=== PATIENT | female | born 1980 | race Caucasian/White ===

== ENCOUNTER 2017-04-18 16:36 | Emergency (ER) | payer MEDICAID ==
[~2017-04-18] VITALS: Ht 160 cm; Wt 60.0 kg
[~2017-04-18 16:36] MED LIST: ACET325T33 PO; ACET500C5 PO; DIPH25CA6 PO; DOCU-144 PO; GLU5XL PO; IBUP-1542 PO; KENC1 TOP; METF500T4 PO; NITR-58 PO; PERM120L5 TP; TRAM50TA2 PO; ZOF8 PO
[2017-04-18 16:38] VITALS: Ht 160 cm; Wt 60.0 kg
[2017-04-18 17:18] LABS: URINE BLOOD (Dip) POC Negative (NEGATIVE)
[2017-04-18] MEDS ORDERED: ACETAMINOPHEN 500 MG TAB PO STA (17:19)
[2017-04-18] MEDS ORDERED: SOD CHLORIDE 0.9% 1,000 ML IV ONE (17:30)
[2017-04-18] MEDS ORDERED: METOCLOPRAMIDE 10 MG INJ IV ONE (17:30)
[2017-04-18 17:33] LABS: ADD SCAN DIFF NO
[2017-04-18 17:35] LABS: BASOPHILS % 0.3 % (0.0-2.0); EOSINOPHILS # 0.1 10^3/ul (0.0-0.5); EOSINOPHILS % 0.8 % (0.0-7.0); HEMATOCRIT 38.6 % (37.0-47.0); HEMOGLOBIN 13.3 g/dl (12.0-16.0); LYMPHOCYTES # 2.9 10^3/ul (0.8-2.9); LYMPHOCYTES % 27.3 % (15.0-51.0); MEAN CORPUSCULAR HEMOGLOBIN 30.5 pg (29.0-33.0); MEAN CORPUSCULAR HGB CONC 34.5 g/dl (32.0-37.0); MEAN CORPUSCULAR VOLUME 88.5 fl (82.0-101.0); MEAN PLATELET VOLUME 10.6 fl (7.4-10.4); MONOCYTES % 9.7 % (0.0-11.0); NEUTROPHIL # 6.5 10^3/ul (1.6-7.5); NEUTROPHILS % 61.6 % (39.0-77.0); PLATELET COUNT 376 10^3/UL (140-415); RED BLOOD COUNT 4.36 10^6/ul (4.20-5.40); RED CELL DISTRIBUTION WIDTH 11.8 % (11.5-14.5); WHITE BLOOD COUNT 10.5 10^3/ul (4.8-10.8)
[2017-04-18 17:55] LABS: ALBUMIN 4.3 g/dl (3.3-4.9); ALBUMIN/GLOBULIN RATIO 1.13; BILIRUBIN,INDIRECT 0.2 mg/dl (0-1.1); BILIRUBIN,TOTAL 0.2 mg/dl (0.2-1.3); CALCIUM 9.6 mg/dl (8.4-10.2); CREATININE 0.45 mg/dl (0.44-1.00); POTASSIUM 3.7 mmol/L (3.5-5.1); TOTAL PROTEIN 8.1 g/dl (6.1-8.1)
[2017-04-18] MEDS ORDERED: METO10TA92 PO (18:37)
[2017-04-18] MEDS ORDERED: ACET500C5 PO (18:37)
[2017-04-18] MEDS ORDERED: CEPH-443 PO (18:42)
--- NOTE | 2017-04-18 18:42 | ERD ---
ER Documentation Chief Complaint Date/Time DATE: 04/18/17 TIME: 18:38 Chief Complaint pt bib family with c/o headache for a few days, approx 12 wks preg HPI Patient is a 36-year-old female, , approximately 12 weeks , presents emergency department with a headache 3 days. Patient denies taking any medication. Patient states the pain is getting gradually worse. Patient denies sudden onset. Patient does have a history of headaches. Patient does report nausea and vomiting throughout her . Patient states she is vomited approximately 4 times today, watery in nature, nonbloody nonbilious. Patient denies any blurry vision, neck pain, neck stiffness, fevers, chills or loss consciousness. Patient's patient denies any chest pain or shortness of breath. Patient also complaining of dysuria and pelvic pain. Patient denies any vaginal discharge or vaginal bleeding. Last menstrual period on 02-13-17. Patient states she has been seeing her GRADUATE INTERN. ROS All systems reviewed and are negative except as per history of present illness. Medications Home Meds Active Scripts Cephalexin* (Keflex*) 500 Mg Capsule, 500 MG PO QID for 7 Days, CAP Prov:DARIN JOHNSON PA-C 04/18/17 Metoclopramide* (Reglan*) 10 Mg Tablet, 10 MG PO Q6 Y for NAUSEA AND/OR VOMITING , #10 TAB Prov:DARIN JOHNSON PA-C 04/18/17 Acetaminophen* (Tylophen*) 500 Mg Capsule, 1 CAP PO Q6H Y for PAIN AND OR ELEVATED TEMP, #20 CAP Prov:DARIN JOHNSON PA-C 04/18/17 Acetaminophen* (Tylophen*) 500 Mg Capsule, 1 CAP PO Q6H Y for PAIN AND OR ELEVATED TEMP, #16 CAP Prov:TERESITA LI MD 06/21/16 Ondansetron Hcl* (Zofran* ODT) 8 mg -ODT Tab.disper, 8 MG PO Q6 Y for NAUSEA AND /OR VOMITING, #10 TAB Prov:TERESITA LI MD 06/21/16 Docusate Sodium* (Colace*) 100 Mg Capsule, 100 MG PO TID, #30 CAP Prov:KYLE GARZA PA-C 02/28/16 Acetaminophen* (Tylenol*) 325 Mg Tablet, 2 TAB PO Q8 Y for PAIN AND OR ELEVATED TEMP, #20 TAB Prov:KYLE GARZA PA-C 02/28/16 Nitrofurantoin Monohyd Macrocr* (Macrobid*) 100 Mg Capsr, 100 MG PO BID for 7 Days, CAP Prov:KYLE GARZA PA-C 02/28/16 Ibuprofen* (Motrin*) 600 Mg Tab, 600 MG PO Q6H Y for PAIN AND OR ELEVATED TEMP, #30 Prov:RENEE HELLER PA-C 10/18/15 Ibuprofen* (Ibuprofen*) 600 Mg Tablet, 600 MG PO Q6 for 7 Days, TAB Prov:TERESITA LI MD 09/15/15 Tramadol HCl (Tramadol HCl) 50 Mg Tab, 50 MG PO Q4 Y for PAIN, #20 TAB Prov:TERESITA LI MD 09/15/15 Triamcinolone Acetonide* (Kenalog*) 0.1%-15GM Cr, 1 APPLIC TOP TID for 7 Days, EA Prov:TERESITA LI MD 06/12/15 Diphenhydramine Hcl (Benadryl) 25 Mg Cap, 25 MG PO q 6 hrs for 7 Days, CAP Prov:TERESITA LI MD 06/12/15 Permethrin (Permethrin) 118 Ml Liquid, 118 ML TP x oneat bed time for 1 Day, EA wash off after 8 hours Prov:TERESITA LI MD 06/12/15 Reported Medications Metformin* (Glucophage*) 500 Mg Tab, 500 MG PO BID, TAB 09/12/14 Glipizide XL* (Glipizide XL*) 5 Mg Tabsr, 5 MG PO BID, TAB 09/12/14 Allergies Allergies: Coded Allergies: No Known Drug Allergies (Verified Allergy, Unknown, 10/18/15) PMhx/Soc History of Surgery: Yes (Cholecystectomy) Anesthesia Reaction: No Hx Neurological Disorder: No Hx Respiratory Disorders: No Hx Cardiac Disorders: No Hx Psychiatric Problems: No Hx Miscellaneous Medical Probl: Yes (, 10 weeks ) Hx Alcohol Use: No Hx Substance Use: No Hx Tobacco Use: No Smoking Status: Never smoker FmHx Family History: No diabetes Physical Exam Vitals Vital Signs Date Time Temp Pulse Resp B/P Pulse Ox O2 Delivery O2 Flow Rate FiO2 04/18/17 19:21 98.3 91 16 114/76 100 Room Air 04/18/17 16:38 97.3 106 16 122/79 98 Physical Exam GENERAL: Well-developed, well-nourished female. Appears in no acute distress. Speaking in full sentences HEAD: Normocephalic, atraumatic. EYES: Pupils are equally reactive bilaterally. EOMs grossly intact. No conjunctival erythema. ENT: Moist mucous membranes. No uvula deviation. No kissing tonsils. NECK: Supple. No meningismus. Normal range of motion of the neck. LUNG: Clear to auscultation bilaterally. No rhonchi, wheezing, rales or coarse breath sounds. HEART: Regular rate and rhythm. No murmurs, rubs or gallops. ABDOMEN: Soft, nontender, and nondistended. Positive bowel sounds in all four quadrants. No rebound tenderness, no guarding. (-) McBurney's point tenderness. No CVA tenderness. BACK: No midline tenderness. EXTREMITIES: Equal pulses bilaterally. No peripheral clubbing, cyanosis or edema. No unilateral leg swelling. NEUROLOGIC: Alert and oriented x3, cooperative. Mood and affect appropriate to situation. Cranial nerves II through XII are grossly intact. Normal speech. Motor exam: 5/5 strength in upper and lower extremities. Sensory exam: Sensation intact to light touch on all four extremities.. Steady gait. No pronator drift. SKIN: Normal color. Warm and dry. No rashes or lesions. Result Diagram: 04/18/17 1726 04/18/17 1726 Results 24 hrs Laboratory Tests Test 04/18/17 17:20 04/18/17 17:26 Bedside Urine pH (LAB) 6.0 Bedside Urine Protein (LAB) Negative Bedside Urine Glucose (UA) 0.25% Bedside Urine Ketones (LAB) Trace Bedside Urine Blood Negative Bedside Urine Nitrite (LAB) Negative Bedside Urine Leukocyte Esterase (L Trace White Blood Count 10.510^3/ul Red Blood Count 4.3610^6/ul Hemoglobin 13.3g/dl Hematocrit 38.6% Mean Corpuscular Volume 88.5fl Mean Corpuscular Hemoglobin 30.5pg Mean Corpuscular Hemoglobin Concent 34.5g/dl Red Cell Distribution Width 11.8% Platelet Count 19729^3/UL Mean Platelet Volume 10.6fl Neutrophils % 61.6% Lymphocytes % 27.3% Monocytes % 9.7% Eosinophils % 0.8% Basophils % 0.3% Nucleated Red Blood Cells % 0.0/100WBC Neutrophils # 6.510^3/ul Lymphocytes # 2.910^3/ul Monocytes # 1.010^3/ul Eosinophils # 0.110^3/ul Basophils # 0.010^3/ul Nucleated Red Blood Cells # 0.010^3/ul Sodium Level 139mmol/L Potassium Level 3.7mmol/L Chloride Level 103mmol/L Carbon Dioxide Level 22mmol/L Anion Gap 18 Blood Urea Nitrogen 7mg/dl Creatinine 0.45mg/dl Glucose Level 88mg/dl Calcium Level 9.6mg/dl Total Bilirubin 0.2mg/dl Direct Bilirubin 0.00mg/dl Indirect Bilirubin 0.2mg/dl Aspartate Amino Transf (AST/SGOT) 22IU/L Alanine Aminotransferase (ALT/SGPT) 40IU/L Alkaline Phosphatase 88IU/L Total Protein 8.1g/dl Albumin 4.3g/dl Globulin 3.80g/dl Albumin/Globulin Ratio 1.13 Current Medications Medications (Trade) Dose Ordered Sig/Trent Route PRN Reason Start Time Stop Time Status Last Admin Dose Admin Sodium Chloride (NS) 1,000 ml @ 1,000 mls/hr Q1H ONCE IV 04/18/17 17:30 04/18/17 18:29 DC 04/18/17 17:38 Metoclopramide HCl (Reglan) 10 mg ONCE ONCE IV 04/18/17 17:30 04/18/17 17:31 DC 04/18/17 17:38 Acetaminophen (Tylenol Tab) 1,000 mg ONCE STAT PO 04/18/17 17:19 04/18/17 17:20 DC 04/18/17 17:38 Procedures/MDM ED COURSE: The patient was stable throughout ED course. I kept the patient and/or family informed of laboratory and diagnostic imaging results throughout the ED course. DIAGNOSTIC IMAGING: Read by radiologist. DIAGNOSTIC IMAGING REPORT Patient: GEREMIAS HANSON : 1980 Age: 36 Sex: F MR #: [id number] DOS: 04/18/17 1715 Ordering MD: DARIN JOHNSON PA-C Location: FT Room/Bed: PROCEDURE: US OB. CLINICAL INDICATION: , suprapubic pain. TECHNIQUE: Multiple sonographic images of the pelvis were obtained. Transabdominal views of the pelvis are available for review. The images were reviewed on a PACS workstation. COMPARISON: No prior studies are available for comparison. FINDINGS: There is a single intrauterine . The mean gestational sac diameter measures 3.83 cm, corresponding to a 7-onph-2-day . The crown-rump length equals 2.27 cm which corresponds to a 6-wgvj-0-day gestational age by ultrasound criteria. cardiac activity measures 174 bpm. No subchorionic hematoma is identified. The right ovary measures 2.6 x 1.6 x 2.0 cm. The left ovary is not visualized. Blood flow is demonstrated to the right ovary. The adnexa are unremarkable. There is no free pelvic fluid. IMPRESSION: 1. Single viable intrauterine gestation of approximately 9 weeks 1 day. 2. The estimated date of delivery is 11/20/2017. 3. Normal appearance of the right ovary. The left ovary is not visualized. RPTAT: HTAR .Jose Ferguson MD, Date Time Electronically viewed and signed by .Jose Ferguson MD, MD on 04/18/2017 18:57 .R/ CC: DARIN JOHNSON PA-C PROCEDURES: None. MEDICATIONS GIVEN: Tylenol p.o., IV fluids, Reglan IV Patient tolerated medication well with no adverse reactions. Patient reported improvement in pain. MEDICAL DECISION MAKING: This is a 36-year-old female who presents to the ED with a headache, nausea and vomiting. Patient reports symptoms for the last 3 days. Patient states soon vomiting throughout her .. Vital signs were reviewed. Patient was afebrile. Patient is not hypoxic. Patient states that her current headache has been getting gradually worse, patient denied any sudden onset. Patient denied any fevers, neck stiffness, visual changes or LOC. Full neurological exam was normal. Patient was given IV fluids, Reglan and Tylenol here in the ED. Patient reported improvement in symptoms prior to discharge. CBC showed no evidence of systemic infection or severe anemia. CMP showed no evidence of electrolyte abnormalities, severe acidosis, alkalosis, renal failure , or liver disease. Urine dip showed trace leukocyte esterase. Given the patient reported dysuria, patient will be treated with Keflex at this time for a urinary tract infection. Pelvic ultrasound showed Single viable intrauterine gestation of approximately 9 weeks 1 day. Given these findings, the patient's presentation is most consistent with tension headache, viable IUP, and UTI. I have a much lower clinical concern for intracranial hemorrhage, meningitis, encephalitis, CO poisoning, temporal arteritis, benign intracranial hypertension , intracranial mass, preeclampsia, sinusitis. Low suspicion for pyelonephritis , nephrolithiasis, ectopic , demise. PRESCRIPTIONS: Tylenol, Reglan, Keflex DISCHARGE: At this time, patient is stable for discharge and outpatient management. I have encouraged the patient to hydrate well. I have instructed the patient to follow- up with her primary care physician/OBGYN in 1-2 days. If symptoms persist, patient may need to see a specialist for further examinations and testing. I have instructed the patient to promptly return to the ER at any time for any new or worsening symptoms including increased increased pain, fever, nausea, vomiting, numbness, neck stiffness, visual changes, weakness or LOC. The patient and/or family expressed understanding of and agreement with this plan. All questions were answered. Home care instructions were provided. Departure Diagnosis: Primary Impression: Headache Headache type: unspecified Headache chronicity pattern: acute headache Intractability: not intractable Qualified Code: R51 - Acute nonintractable headache, unspecified headache type Additional Impression: Weeks of gestation: unspecified Qualified Code: Z33.1 - , unspecified gestational age Condition: Stable Patient Instructions: Self-Care for Headaches Referrals: [facility] YOU HAVE RECEIVED A MEDICAL SCREENING EXAM AND THE RESULTS INDICATE THAT YOU DO NOT HAVE A CONDITION THAT REQUIRES URGENT TREATMENT IN THE EMERGENCY DEPARTMENT. FURTHER EVALUATION AND TREATMENT OF YOUR CONDITION CAN WAIT UNTIL YOU ARE SEEN IN YOUR DOCTORS OFFICE WITHIN THE NEXT 1-2 DAYS. IT IS YOUR RESPONSIBILITY TO MAKE AN APPOINTMENT FOR FOLOW-UP CARE. IF YOU HAVE A PRIMARY DOCTOR --you should call your primary doctor and schedule an appointment IF YOU DO NOT HAVE A PRIMARY DOCTOR YOU CAN CALL OUR PHYSICIAN REFERRAL HOTLINE AT IF YOU CAN NOT AFFORD TO SEE A PHYSICIAN YOU CAN CHOSE FROM THE FOLLOWING [facility] [address] [facility] [address] [facility] [address] [facility] [address] [facility] [address] [facility] [facility] [address] [facility] YOU HAVE RECEIVED A MEDICAL SCREENING EXAM AND THE RESULTS INDICATE THAT YOU DO NOT HAVE A CONDITION THAT REQUIRES URGENT TREATMENT IN THE EMERGENCY DEPARTMENT. FURTHER EVALUATION AND TREATMENT OF YOUR CONDITION CAN WAIT UNTIL YOU ARE SEEN IN YOUR DOCTORS OFFICE WITHIN THE NEXT 1-2 DAYS. IT IS YOUR RESPONSIBILITY TO MAKE AN APPOINTMENT FOR FOL- CARE. IF YOU HAVE A PRIMARY DOCTOR --you should call your primary doctor and schedule and appointment IF YOU DO NOT HAVE A PRIMARY DOCTOR YOU CAN CALL OUR PHYSICIAN REFERRAL HOTLINE AT . IF YOU CAN NOT AFFORD TO SEE A PHYSICIAN YOU CAN CHOSE FROM THE FOLLOWING [facility] INSTITUTIONS: [facility] [address] [place] [address] [facility] [address] [place] [address] [facility] [address] [place] [address] [employer] [place] [address] [facility] [address] [place] [address]ABUSLEME ANTONIO [address] [place] [address] [address] [place] [address] [place], [place] [id number] [facility] [address], [address], [place] [address] [facility] [address] [facility] [place] [address] [facility] [address] [place] [address] [address] [facility], [facility] [address] - DR GONZÁLES KESHAWN [address], [place] [address] DR GALDAMEZ, MAYDA [address] [facility]. [address], [place] [address] DR NAZARIO, [facility] [address] [place], [place] [address] Additional Instructions: Call your primary care doctor/OBGYN TOMORROW for an appointment during the next 1-2 days.See the doctor sooner or return here if your condition worsens before your appointment time. DARIN JOHNSON PA-C April 18, 2017 18:42
--- NOTE | 2017-04-18 18:58 | RADRPT ---
PROCEDURE: US OB. CLINICAL INDICATION: , suprapubic pain. TECHNIQUE: Multiple sonographic images of the pelvis were obtained. Transabdominal views of the p beltran are available for review. The images were reviewed on a PACS workstation. COMPARISON: No prior studies are available for comparison. FINDINGS: There is a single intrauterine . The mean gestational sac diameter measures 3.83 cm, corres ponding to a 3-gprr-0-day . The crown-rump length equals 2.27 cm which corresponds to a 9- week-0-day gestational age by ultrasound criteria. cardiac activity measures 174 bpm. No sub chorionic hematoma is identified. The right ovary measures 2.6 x 1.6 x 2.0 cm. The left ovary is not visualized. Blood flow is demon strated to the right ovary. The adnexa are unremarkable. There is no free pelvic fluid. IMPRESSION: 1. Single viable intrauterine gestation of approximately 9 weeks 1 day. 2. The estimated date of delivery is 11/20/2017. 3. Normal appearance of the right ovary. The left ovary is not visualized. RPTAT: HTAR .Jose Ferguson MD, MD Date Time Electronically viewed and signed by .Jose Ferguson MD, on 04/18/2017 18:57 .R/
[2017-04-18 19:21] VITALS: BP 114/76; PULSE 91; RESP 16; TEMP 98.3
== END 2017-04-18 19:22 | disposition home or self-care (01) ==
LOC: FTE 16:36
DX: O99.89 Other specified diseases and conditions complicating pregnancy, childbirth and the puerperium (principal); R51 Headache; Z3A.09 9 weeks gestation of pregnancy
CPT/HCPCS: 36415; 76801; 80053; 81003; 85025; 96361; 96374; J2765; J7030; Z7502; Z7610